=== PATIENT | male | born 1950 | race Caucasian/White ===

== ENCOUNTER 2018-05-30 17:28 | Emergency (ER) | payer MEDICAID ==
[2018-05-30] MEDS ORDERED: Sodium Chloride 0.9% 10 ML Syringe FLUSH PRN (17:51)
--- NOTE | 2018-05-30 18:13 | EDM.PDOC ---
ED HPI GENERAL MEDICAL PROBLEM - General Chief Complaint: Neuro Symptoms/Deficits Stated Complaint: ARM NUMBNESS Time Seen by Provider: 05/30/18 17:35 Source of Information: Reports: Patient, Family (Daughter) History Limitations: Reports: No Limitations - History of Present Illness INITIAL COMMENTS - FREE TEXT/NARRATIVE: 68-year-old male who was feeling in his normal state of health until approximately 4:45 PM when he went to the bathroom at his daughter's house (who he is visiting) and when he attempted to use his left hand and arm to urinate he noted that his left hand was discoordinated and 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 He also felt a little off balance and had to steady himself against the wall. He's had no headache. He had no chest pain. No nausea or vomiting. He has been eating and drinking normally. He feels that he is speaking appropriately and that he can swallow appropriately. His daughter corroborates this. He feels that his symptoms may have improved slightly but they feel almost the same as when he suddenly developed this left upper extremity weakness and numbness. He also has fairly profound numbness of his hands, reporting that they feel like rubber. He took 1000 mg of acetaminophen just prior to this occurring. He is on no chronic anticoagulation. The patient does report that he has been having shortness of breath with activity and at rest for the past 3 months and when he lies down at night he feels that he is wheezing. He has sought no medical care related to this shortness of breath. There are no other associated signs or symptoms. There are no other modifying factors. Onset: Today, Sudden (As above) Onset Date: 05/30/18 Onset Time: 16:45 Duration: Constant, Heavy Location: Reports: Lower Extremity, Left Quality: Reports: Other (No pain, just numbness and discoordination with weakness to his left hand and left upper extremity.) Improves with: Reports: None Worsens with: Reports: None Context: Reports: Other (As above) Associated Symptoms: Reports: No Other Symptoms Treatments [employer]: Reports: Acetaminophen - Related Data Allergies Allergy/AdvReac Type Severity Reaction Status Date / Time Penicillins Allergy Anaphylactic Verified 05/30/18 17:38 Shock Home Meds: Home Meds Cranberry 500 mg PO DAILY 05/30/18 [History] Furosemide [Lasix] 40 mg PO DAILY 05/30/18 [History] Metoprolol Tartrate 100 mg PO BID 05/30/18 [History] Republic-3/DHA/Epa/Fish Oil [Republic 3 500 Softgel] 1 cap PO DAILY 05/30/18 [History] Past Medical History Cardiovascular History: Reports: Heart Murmur, Hypertension Musculoskeletal History: Reports: Neck Pain, Chronic (With previous neck fractures), Osteoarthritis Other Musculoskeletal History: Bilateral knee pain related to his severe osteoarthritis. 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 ED ROS GENERAL - Review of Systems Review Of Systems: See Below Constitutional: Reports: No Symptoms HEENT: Reports: No Symptoms Respiratory: Reports: Shortness of Breath, Wheezing Cardiovascular: Reports: No Symptoms Endocrine: Reports: No Symptoms GI/Abdominal: Reports: No Symptoms : Reports: No Symptoms Musculoskeletal: Reports: Other (As in history of present illness) Skin: Reports: No Symptoms Neurological: Reports: Numbness (Left hand and arm numbness), Weakness (Left hand and left arm discoordination and weakness) Hematologic/Lymphatic: Reports: No Symptoms Immunologic: Reports: No Symptoms ED EXAM, NEURO - Physical Exam Exam: See Below Exam Limited By: No Limitations General Appearance: Alert, Mild Distress, Obese Eye Exam: Bilateral Eye: EOMI, Normal Inspection, PERRL Ears: Normal External Exam, Hearing Grossly Normal Nose: Normal Inspection, Normal Mucosa, No Blood Throat/Mouth: Normal Inspection, Normal Lips, Normal Voice, No Airway Compromise Head Exam: Atraumatic, Normocephalic Neck: Normal Inspection, Supple, Non-Tender, Limited Range of Motion (But this is chronic) Respiratory/Chest: No Accessory Muscle Use, Respiratory Distress (Some mild dyspnea), Wheezing (Mild, bilaterally) Cardiovascular: Normal Peripheral Pulses, Systolic Murmur, Other (Somewhat irregular rhythm that is intermittent) GI/Abdominal: Normal Bowel Sounds, Soft, Other (Protuberant) Neurological: Alert, Normal Mood/Affect, CN II-XII Intact, Oriented x 3, Abnormal Finger to Nose (Can't on left side), Other (Left hand and arm weakness ; pronator drift on left upper extremity; NIH stroke scale score was 5) Back Exam: Normal Inspection Extremities: Normal Capillary Refill, Other (Chronic changes in left hand from previous trauma) Psychiatric: Normal Affect, Normal Mood Skin Exam: Normal Color, Other (Abrasions on left hand) EKG INTERPRETATION EKG Date: 05/30/18 Time: 18:39 Rhythm: NSR Rate (Beats/Min): 81 [place]: Normal P-Wave: Present QRS: Normal ST-T: Normal QT: Prolonged Comparison: NA - No Prior EKG EKG Interpretation Comments: As above. No current of injury and ischemia. PAC's present. Course - Vital Signs Last Recorded V/S: Last Vital Signs Temp 36.3 C 05/30/18 17:30 Pulse 82 05/30/18 17:30 Resp 20 05/30/18 17:30 BP 169/102 H 05/30/18 17:30 Pulse Ox 93 L 05/30/18 18:00 - Orders/Labs/Meds Orders: Active Orders 24 hr Category Date Time Status EKG Documentation Completion [RC] ASDIRECTED Care 05/30/18 17:53 Active Chest 1V Frontal [CR] Stat Exams 05/30/18 17:51 Taken Head wo Cont [CT] Stat Exams 05/30/18 17:51 Taken Peripheral IV Insertion Adult [OM.PC] Routine Oth 05/30/18 17:51 Ordered EKG 12 Lead [EK] Routine Ther 05/30/18 17:51 Ordered Labs: Laboratory Tests 05/30/18 05/30/18 05/30/18 Range/Units 18:00 18:00 18:00 WBC 11.9 (4.5-12.0) X10-3/uL RBC 4.79 (4.30-5.75) x10(6)uL Hgb 14.6 (13.5-17.8) g/dL Hct 42.5 (30.0-51.3) % MCV 88.8 (80-96) fL MCH 30.4 (27.7-33.6) pg MCHC 34.3 (32.2-35.4) g/dL RDW 14.3 (11.5-15.5) % Plt Count 295 (125-369) X10(3)uL MPV 8.0 (7.4-10.4) fL Neut % (Auto) 72.8 (46-82) % Lymph % (Auto) 10.6 L (13-37) % [place] % (Auto) 10.6 (4-12) % Eos % (Auto) 4 (1.0-5.0) % Baso % (Auto) 3 H (0-2) % Neut # (Auto) 8.6 H (1.6-8.3) # Lymph # (Auto) 1.3 (0.6-5.0) # [place] # (Auto) 1.3 (0.0-1.3) # Eos # (Auto) 0.4 (0.0-0.8) # Baso # (Auto) 0.3 H (0.0-0.2) # PT 11.9 H (8.7-11.1) INR 1.23 H (0.89-1.13) APTT 29.4 (24.4-33.2) SECONDS Sodium 139 (135-145) mmol/L Potassium 3.4 L (3.5-5.3) mmol/L Chloride 101 (100-110) mmol/L Carbon Dioxide 28 (21-32) mmol/L BUN 20 H (7-18) mg/dL Creatinine 1.2 (0.70-1.30) mg/dL Est Cr Clr Drug Dosing TNP Estimated GFR (MDRD) > 60 (>60) BUN/Creatinine Ratio 16.7 (9-20) Glucose 124 H (80-116) mg/dL Calcium 8.9 (8.6-10.2) mg/dL Total Bilirubin 0.7 (0.1-1.3) mg/dL AST 23 (5-25) IU/L ALT 24 (12-36) U/L Alkaline Phosphatase 81 (56-112) IU/L Troponin I (<0.017-0.056) ng/mL Total Protein 7.8 (6.0-8.0) g/dL Albumin 3.3 (3.2-4.6) g/dL Globulin 4.5 g/dL Albumin/Globulin Ratio 0.7 04/15/19 Range/Units 18:00 WBC (4.5-12.0) X10-3/uL RBC (4.30-5.75) x10(6)uL Hgb (13.5-17.8) g/dL Hct (30.0-51.3) % MCV (80-96) fL MCH (27.7-33.6) pg MCHC (32.2-35.4) g/dL RDW (11.5-15.5) % Plt Count (125-369) X10(3)uL MPV (7.4-10.4) fL Neut % (Auto) (46-82) % Lymph % (Auto) (13-37) % [place] % (Auto) (4-12) % Eos % (Auto) (1.0-5.0) % Baso % (Auto) (0-2) % Neut # (Auto) (1.6-8.3) # Lymph # (Auto) (0.6-5.0) # [place] # (Auto) (0.0-1.3) # Eos # (Auto) (0.0-0.8) # Baso # (Auto) (0.0-0.2) # PT (8.7-11.1) INR (0.89-1.13) APTT (24.4-33.2) SECONDS Sodium (135-145) mmol/L Potassium (3.5-5.3) mmol/L Chloride (100-110) mmol/L Carbon Dioxide (21-32) mmol/L BUN (7-18) mg/dL Creatinine (0.70-1.30) mg/dL Est Cr Clr Drug Dosing Estimated GFR (MDRD) (>60) BUN/Creatinine Ratio (9-20) Glucose (80-116) mg/dL Calcium (8.6-10.2) mg/dL Total Bilirubin (0.1-1.3) mg/dL AST (5-25) IU/L ALT (12-36) U/L Alkaline Phosphatase (56-112) IU/L Troponin I 0.019 (<0.017-0.056) ng/mL Total Protein (6.0-8.0) g/dL Albumin (3.2-4.6) g/dL Globulin g/dL Albumin/Globulin Ratio Meds: Medications Discontinued Medications Generic Name Dose Route Start Last Admin Trade Name Freq PRN Reason Stop Dose Admin Alteplase, Recombinant 9 mg 05/30/18 18:50 05/30/18 19:04 Activase IV 05/30/18 18:51 9 mg .BOLUS ONE Administration Alteplase, Recombinant 81 mg 05/30/18 18:50 05/30/18 19:05 Activase IV 05/30/18 18:51 81 mg .INFUSION ONE Administration Sodium Chloride 1,000 mls @ 50 mls/hr 05/30/18 18:00 05/30/18 18:35 Normal Saline IV 50 mls/hr ASDIRECTED ALTAF Administration Sodium Chloride 10 ml 05/30/18 17:51 05/30/18 19:00 Saline Flush FLUSH 10 ml ASDIRECTED PRN Administration Keep Vein Open - Radiology Interpretation Free Text/Narrative:: Portable chest x-ray showed no acute disease. CT scan of head with no contrast showed no acute intracranial abnormality identified per Dr. Miles consulting radiologist. CT Results Date: 05/30/18 - Re-Assessments/Exams Free Text/Narrative Re-Assessment/Exam: 05/30/18 18:35 hrs: Patient back from CT scan around 6:20 PM. Patient remains awake and alert. He has an elevated blood pressure but it has remained stable. He is essentially neurologically unchanged with left upper extremity weakness and discoordination and numbness. I called and discussed the patient's case with Dr. Marlow, stroke neurologist at [facility] in [place], and he recommended giving the patient TPA via stroke protocol and transferred to his facility for rene and further cares through their facility. This is necessary because there is no stroke neurologist or interventional radiologist available at [facility]. I will discuss the risk and benefits with him and his daughter Free Text/Narrative Re-Assessment/Exam: 05/30/18 1855: The official report of the CT scan came back no acute abnormality. I discussed the risk and the benefits of giving TPA for stroke with the patient and the daughter. I have told the patient that stroke neurologist recommended treatment with TPA and felt that the benefits outweighed the risk. I answered patient's questions and the daughter's questions. They have given informed verbal consent to proceed with administration of TPA via stroke protocol. Air ambulance transport is being arranged. The patient will need air ambulance transport secondary to the need for rapid transport for cares through stroke neurologist and potentially interventional radiologist, the critical nature of the patient's condition and the need for specialized nursing care and monitoring care not available through ground transport. Departure - Departure Time of Disposition: 19:15 Disposition: DC/Tfer to Acute Hospital 02 Condition: Critical Clinical Impression: Acute ischemic stroke, Hypertension, uncontrolled - Discharge Information Referrals: PCP,None [Primary Care Provider] - Forms: ED Department Discharge Critical Care Note - Critical Care Note Total Time (mins): 80 (Total critical care time spent directly caring for the patient and coordinating his transfer) - My Orders Last 24 Hours: My Active Orders 05/30/18 17:51 Chest 1V Frontal [CR] Stat Head wo Cont [CT] Stat Peripheral IV Insertion Adult [OM.PC] Routine EKG 12 Lead [EK] Routine 05/30/18 17:53 EKG Documentation Completion [RC] ASDIRECTED - Assessment/Plan Last 24 Hours: My Active Orders 05/30/18 17:51 Chest 1V Frontal [CR] Stat Head wo Cont [CT] Stat Peripheral IV Insertion Adult [OM.PC] Routine EKG 12 Lead [EK] Routine 05/30/18 17:53 EKG Documentation Completion [RC] ASDIRECTED
[2018-05-30] MEDS: Sodium Chloride 0.9% 1,000 ML IV SCH ×2 (18:30→18:35)
--- NOTE | 2018-05-31 11:29 | CR ---
INDICATION: Left-sided weakness, short of breath. CHEST: AP portable view of the chest was obtained upright 05/30/18 - no comparisons. The heart is enlarged. The aorta is tortuous. Overlying EKG leads are noted. Upper lung field pulmonary vasculature is prominent, compatible with CHF. Interstitial markings suggest a mild degree of interstitial lung edema. No consolidating pneumonia or effusion was seen. IMPRESSION: ASHD, cardiomegaly, CHF with interstitial lung edema. MTDD
== END 2018-05-30 19:34 ==
LOC: FB.ED 17:28
DX: I63.9 Cerebral infarction, unspecified (principal); I10 Essential (primary) hypertension; Z88.0 Allergy status to penicillin; Z79.899 Other long term (current) drug therapy
CPT/HCPCS: 36415; 70450; 71045; 80053; 84484; 85025; 85610; 85730; 93005; 96365; 99285-25; J2997; J7030